=== PATIENT | female | born 1935 | race Asian ===

== ENCOUNTER 2023-02-21 16:56 | Outpatient (CLI) | payer MEDICARE, OTHER | END 2023-02-21 16:57 | disposition EMS.NT | LOC: EMS 16:56 | DX: R06.09 Other forms of dyspnea (principal); R53.1 Weakness; R53.83 Other fatigue ==

== ENCOUNTER 2023-02-24 22:18 | Outpatient (CLI) | payer MEDICARE, OTHER | END 2023-02-24 23:59 | disposition critical access hospital (66) | LOC: EMS 22:18 | DX: R06.02 Shortness of breath (principal); R41.0 Disorientation, unspecified; R53.83 Other fatigue | CPT/HCPCS: A0425; A0427 ==

== ENCOUNTER 2023-02-24 22:34 | Inpatient (IN) | payer MEDICARE, OTHER ==
[2023-02-24 23:11] LABS: BILIRUBIN,URINE NEGATIVE (NEGATIVE); GLUCOSE, URINE (UA) NEGATIVE (NEGATIVE); KETONES,URINE (UA) NEGATIVE (NEGATIVE); LEUKOCYTE ESTERASE, URINE NEGATIVE (NEGATIVE); NITRITE,URINE NEGATIVE (NEGATIVE); OCCULT BLOOD,URINE NEGATIVE (NEGATIVE); PROTEIN,URINE 30 mg/dL (NEGATIVE); UROBILINOGEN,URINE 0.2 (NORMAL) E.U./dL (NORMAL)
[2023-02-24 23:14] LABS: CLARITY,URINE HAZY (CLEAR)
[2023-02-24 23:20] LABS: VBG BASE EXCESS -7.6 mmol/L (-2 - +2); VBG HCO3 17.3 mmol/L (23-28); VBG OXYGEN SATURATION 62.1 % (60-80); VBG PCO2 33.5 mmHg (41-51); VBG PH 7.331 (7.31-7.41); VBG PO2 36.8 mmHg (25-47); VBG TOTAL CO2 18.3 mmol/L (24-29)
[2023-02-24 23:21] LABS: BASOPHILS % (AUTO) 0.2 %; EOSINOPHILS % (AUTO) 0.1 %; HCT - HEMATOCRIT 38.2 % (37.0-47.0); HGB - HEMOGLOBIN 12.1 g/dL (12.0-16.0); LYMPHOCYTES # (AUTO) 1.5 10^3/uL (1.5-3.5); LYMPHOCYTES % (AUTO) 8.9 %; MEAN CORPUSCULAR HEMOGLOBIN 30.2 pg (27.0-31.0); MEAN CORPUSCULAR HGB CONC 31.7 g/dL (32.0-36.0); MEAN CORPUSCULAR VOLUME 95.3 fL (81.0-99.0); MEAN PLATELET VOLUME 9.5 fL (7.9-10.8); MONOCYTES # (AUTO) 1.3 10^3/uL (0.0-1.0); NEUTROPHILS # (AUTO) 13.5 10^3/uL (1.5-6.6); NEUTROPHILS % (AUTO) 80.9 %; NRBC ABSOLUTE COUNT (AUTO) 0.06 x10^3/uL; NUCLEATED RED BLOOD CELLS AUTO 0.4 /100WBC; PLT - PLATELET COUNT 339 10^3/uL (130-450); RED BLOOD COUNT 4.01 10^6/uL (4.20-5.40); RED CELL DISTRIBUTION WIDTH 14.4 % (12.0-15.0); WHITE BLOOD COUNT 16.7 x10^3/uL (4.8-10.8)
[2023-02-24 23:27] LABS: WBC,URINE 0-3 /HPF (0-5)
[2023-02-24 23:28] LABS: BACTERIA,URINE Few /HPF (None Seen); CASTS, URINE 3-5 Hyaline Casts /LPF; RBC,URINE 0-5 /HPF (0-5); SQUAMOUS EPITHELIAL CELL,UR MANY Squamous (<= Few)
[2023-02-24 23:37] LABS: ALBUMIN 4.1 g/dL (3.2-5.5); ALBUMIN/GLOBULIN RATIO 1.1 (1.0-2.2); BILIRUBIN,TOTAL 1.8 mg/dL (0.2-1.0); CALCIUM 9.1 mg/dL (8.5-10.3); CREATININE 1.9 mg/dL (0.4-1.0); POTASSIUM 5.2 mmol/L (3.5-5.0); TOTAL PROTEIN 7.8 g/dL (6.7-8.2)
[2023-02-24] MEDS ORDERED: PIPERACILLIN/TAZOBACTAM 3.375 GM in SODIUM CHLORIDE 0.9% MINIBAG 100 ML IV STA (23:41)
[2023-02-24] MEDS ORDERED: ALBUTEROL NEB 2.5 MG/3 ML INH STA (23:41)
[2023-02-24] MEDS ORDERED: VANCOMYCIN INJ 1.25 GM in SODIUM CHLORIDE 0.9% 500 ML IV STA (23:41)
[2023-02-24] MEDS ORDERED: SODIUM CHLORIDE 0.9% 1,000 ML IV STA (23:45)
--- NOTE | 2023-02-24 23:46 | ED Physician Documentation ---
History of Present Illness - Stated complaint Stated Complaint: CONFUSION, WEAKNESS, FTT - Chief complaint Chief Complaint: Resp - History obtained from History obtained from: EMS - Additonal information Additional information: 87yF presents to the ED bibems with report daughter will come with more complete history, but that patient has not been eating or drinking X several days and has been increasingly weak. history limited by patient ams. PD PAST MEDICAL HISTORY - Past Medical History Past Medical History: Yes Cardiovascular: High cholesterol Respiratory: None Endocrine/Autoimmune: Type 2 diabetes, HyPOthyroidism GI: None : None HEENT: None Psych: None Musculoskeletal: None Derm: None - Past Surgical History Past Surgical History: Yes General: Colonoscopy /FARM MACHINE TENDER: section HEENT: Tonsil/Adenoidectomy - Present Medications Home Medications: Ambulatory Orders Medication Instructions Recorded Confirmed Aspirin [Aspir 81] 81 mg PO DAILY 02/17/15 03/04/15 Calcium Carb, Citrate/Vit D3 1 each PO DAILY 02/17/15 03/04/15 [Calcium + D3 ER Tablet] Levothyroxine [Synthroid] 225 mcg PO QDAC 02/17/15 03/04/15 Simvastatin 20 mg PO DAILY 02/17/15 03/04/15 Telmisartan [Micardis] 20 mg PO DAILY 02/17/15 03/04/15 metFORMIN [Glucophage] 500 mg PO BIDWM 02/17/15 03/04/15 - Allergies Allergies/Adverse Reactions: Allergies Allergy/AdvReac Type Severity Reaction Status Date / Time No Known Drug Allergies Allergy Verified 02/17/15 14:28 - Social History Does the pt smoke?: No Smoking Status: Never smoker PD ED PE NORMAL - Vitals Vital signs reviewed: Yes - General General: No acute distress, Well developed/nourished, Other (AOX2) - HEENT HEENT: Atraumatic, PERRL, EOMI, Pharynx benign, Other (dry MM) - Neck Neck: Supple, no meningeal sign - Cardiac Cardiac: Other (tachycardic rate, regular rhythm) - Respiratory Respiratory: Other (BL crackles) - Abdomen Abdomen: Non tender, Non distended - Derm Derm: Other (pale, with perioral cyanosis) - Extremities Extremities: No deformity Results - Vitals Vitals: Vital Signs - 24 hr 02/24/23 02/24/23 02/24/23 22:36 23:15 23:45 Temperature 36.3 C L Heart Rate 94 120 H 141 H Respiratory 36 H 26 H 22 Rate Blood Pressure 117/100 H 117/79 O2 Saturation 94 92 91 L If not protocol 2 1 : Oxygen Flow, liters/minute 02/25/23 02/25/23 02/25/23 00:07 00:28 01:02 Temperature Heart Rate 141 H 99 133 H Respiratory 28 H 30 H 30 H Rate Blood Pressure 127/91 H 93/59 L O2 Saturation 92 90 L If not protocol 4 2 4 : Oxygen Flow, liters/minute 02/25/23 01:16 Temperature Heart Rate 145 H Respiratory 31 H Rate Blood Pressure 100/69 O2 Saturation 90 L If not protocol 5 : Oxygen Flow, liters/minute Oxygen O2 Source Nasal cannula Oxygen Flow Rate 2 - EKG (time done) 2256 EKG releavant findings:: EKG personally interpreted by author of this note. Relevant findings are: Rate: Rate (enter#) (144) Rhythm: Sinus tachycardia Ischemia: Other (peaked t waves c/w hyperkalemia) Computer interpretation: Disagree with computer (not c/w SVT. this appears to be sinus tachycardia) - Labs Labs: Laboratory Tests 02/24/23 02/24/23 02/24/23 23:04 23:13 23:13 WBC 16.7 H RBC 4.01 L Hgb 12.1 Hct 38.2 MCV 95.3 MCH 30.2 MCHC 31.7 L RDW 14.4 Plt Count 339 MPV 9.5 Neut # (Auto) 13.5 H Lymph # (Auto) 1.5 [place] # (Auto) 1.3 H Eos # (Auto) 0.0 Baso # (Auto) 0.0 Absolute Nucleated RBC 0.06 Nucleated RBC % 0.4 VBG pH VBG pCO2 VBG pO2 VBG HCO3 VBG Total CO2 VBG O2 Saturation VBG Base Excess Sodium 131 L Potassium 5.2 H Chloride 98 L Carbon Dioxide 17 L Anion Gap 16.0 H BUN 89 H* Creatinine 1.9 H Estimated GFR (MDRD) 25 L Glucose 165 H POC Whole Bld Glucose Lactic Acid Calcium 9.1 Magnesium Total Bilirubin 1.8 H AST 360 H ALT 359 H Alkaline Phosphatase 284 H Troponin I High Sens B-Natriuretic Peptide 231 H Total Protein 7.8 Albumin 4.1 Globulin 3.7 Albumin/Globulin Ratio 1.1 Lipase 82 H Urine Color YELLOW Urine Clarity HAZY Urine pH 5.0 Ur Specific [place] >=1.030 H Urine Protein 30 H Urine Glucose (UA) NEGATIVE Urine Ketones NEGATIVE Urine Occult Blood NEGATIVE Urine Nitrite NEGATIVE Urine Bilirubin NEGATIVE Urine Urobilinogen 0.2 (NORMAL) Ur Leukocyte Esterase NEGATIVE Urine RBC 0-5 Urine WBC 0-3 Ur Squamous Epith Cells MANY Squamous H Urine Bacteria Few Urine Casts 3-5 Hyaline Casts Ur Microscopic Review INDICATED Urine Culture Comments NOT INDICATED 02/24/23 02/24/23 02/24/23 23:13 23:13 23:45 WBC RBC Hgb Hct MCV MCH MCHC RDW Plt Count MPV Neut # (Auto) Lymph # (Auto) [place] # (Auto) Eos # (Auto) Baso # (Auto) Absolute Nucleated RBC Nucleated RBC % VBG pH 7.331 VBG pCO2 33.5 L VBG pO2 36.8 VBG HCO3 17.3 L VBG Total CO2 18.3 L VBG O2 Saturation 62.1 VBG Base Excess -7.6 L Sodium Potassium Chloride Carbon Dioxide Anion Gap BUN Creatinine Estimated GFR (MDRD) Glucose POC Whole Bld Glucose Lactic Acid Calcium Magnesium 2.3 Total Bilirubin AST ALT Alkaline Phosphatase Troponin I High Sens 11.0 B-Natriuretic Peptide Total Protein Albumin Globulin Albumin/Globulin Ratio Lipase Urine Color Urine Clarity Urine pH Ur Specific [place] Urine Protein Urine Glucose (UA) Urine Ketones Urine Occult Blood Urine Nitrite Urine Bilirubin Urine Urobilinogen Ur Leukocyte Esterase Urine RBC Urine WBC Ur Squamous Epith Cells Urine Bacteria Urine Casts Ur Microscopic Review Urine Culture Comments 02/24/23 02/25/23 23:45 01:49 WBC RBC Hgb Hct MCV MCH MCHC RDW Plt Count MPV Neut # (Auto) Lymph # (Auto) [place] # (Auto) Eos # (Auto) Baso # (Auto) Absolute Nucleated RBC Nucleated RBC % VBG pH VBG pCO2 VBG pO2 VBG HCO3 VBG Total CO2 VBG O2 Saturation VBG Base Excess Sodium Potassium Chloride Carbon Dioxide Anion Gap BUN Creatinine Estimated GFR (MDRD) Glucose POC Whole Bld Glucose 142 H Lactic Acid 4.3 H* Calcium Magnesium Total Bilirubin AST ALT Alkaline Phosphatase Troponin I High Sens B-Natriuretic Peptide Total Protein Albumin Globulin Albumin/Globulin Ratio Lipase Urine Color Urine Clarity Urine pH Ur Specific [place] Urine Protein Urine Glucose (UA) Urine Ketones Urine Occult Blood Urine Nitrite Urine Bilirubin Urine Urobilinogen Ur Leukocyte Esterase Urine RBC Urine WBC Ur Squamous Epith Cells Urine Bacteria Urine Casts Ur Microscopic Review Urine Culture Comments PD Medical Decision Making - ED course ED course: 87yF bibems with CC failure to thrive and confusion. patient is SOA on arrival, tachycardic with ekg reading SVT but appears to be sinus tachycardia on my interpretation. no POLST on file. attempted to call both numbers on file but no answer. Patient meets sepsis criteria based on tachycardia, tachypnea, hypothermia, and leukocytosis. CXR concerning for pneumonia. vanc/zosyn ordered empirically and 1L IVF provided. holding off on 30cc/kg bolus given advanced age and concern for fluid overload. Hyperkalemia treated with dextrose/insulin, bicarb, calcium gluconate and xoponex breathing treatment. Plan to admit telehealth. d/w daughter who spoke with her older brother who is POA and requested she be made DNR/DNI. polst completed. patient DNR/DNI with selective measures only. Departure - Departure Disposition: 66 [facility] DC/Xfer Clinical Impression: Hyperkalemia, Pneumonia, Pleural effusion, Shortness of breath, Hypoxia Condition: Serious Forms: PCP List
--- NOTE | 2023-02-24 23:46 | XRAY Report ---
PROCEDURE: Chest 1 View X-Ray INDICATIONS: soa TECHNIQUE: One view of the chest was acquired. COMPARISON: None. FINDINGS: Surgical changes and devices: None. Lungs and pleura: There is a moderate left pleural effusion with left basilar atelectasis or consoli dation. Mediastinum: There is enlargement of the aortic arch contour. The left heart contours are obscured b ut there is suspected clinically. Bones and chest wall: No suspicious bony lesions. Overlying soft tissues appear unremarkable. IMPRESSION: 1. Enlargement of the aortic contour suspicious for an aortic aneurysm. Recommend further evaluation with a CT angiogram. 2. Moderate left pleural effusion with left basilar consolidation or atelectasis. Reviewed by: Tohmpson Holm MD on 02/25/2023 12:01 AM PDT Approved by: Thompson Holm MD on 02/25/2023 12:01 AM PDT Station ID: [id number]
[2023-02-25] MEDS ORDERED: ALBUTEROL NEB 2.5 MG/3 ML INH ONE (00:01)
[2023-02-25] MEDS ORDERED: VANCOMYCIN 1 GM VIAL ONE (00:04)
[2023-02-25] MEDS ORDERED: LEVALBUTEROL 1.25 MG/3 ML NEB INH ONE (00:11)
[2023-02-25] MEDS ORDERED: LEVALBUTEROL 1.25 MG/3 ML NEB INH STA (00:13)
[2023-02-25] MEDS ORDERED: INSULIN REGULAR HUMAN 300 UNIT/3 ML VIAL IVP STA (00:16)
[2023-02-25] MEDS ORDERED: DEXTROSE 50% ABBOJECT 25 GM/50 ML SYRINGE IVP STA (00:16)
[2023-02-25] MEDS ORDERED: CALCIUM GLUCONATE IN NS 0.9% 2,000 MG/100 ML BAG IV STA (00:22)
[2023-02-25] MEDS ORDERED: SODIUM BICARBONATE ABBOJECT 50 MEQ/50 ML SYRINGE IVP STA ×2 (00:22→18:49)
--- NOTE | 2023-02-25 01:34 | HISTORY & PHYSICAL EXAMINATION ---
Chief Complaint - Chief Complaint Chief Complaint: tired History of Present Illness - Admitted From Admitted From:: ED - History Obtained From Records Reviewed: EMR History obtained from: Patient and Daughter Exam Limitations: Tele Medicine and hearing impairment - History of Present Illness HPI Comment/Other: 87F c hearing impairment who presents to the ED reporting not feeling well. Patient is a poor historian. She simply states she is not feeling well. She reports no fever. positive SOB. fatigue. cough. no chest pain. Plus nausea. no vomiting. no diarrhea. At bedside, daughter reports patient got a respiratory cold 3 wks ago and lasted 10 days. After 10days, sxs resolved. 5 days ago, patient started to have decreased appetite. Daughter reported patient decreased ability to walk. [place] very fatigued. Daughter called medics twice over the past week and patient had stable vitals so patient was not transferred to the ED. Today patient seems very much ill so daughter decided to bring patient into the ED. Daughter reports no rash. POS chronic BL swelling. negative medication change. patient has never smoke. she has an albuterol inhaler for asthma. 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 HEENT: reports: Tonsil/Adenoidectomy Meds/Allgy - Home Medications Home Medications: Ambulatory Orders Medication Instructions Recorded Confirmed Aspirin [Aspir 81] 81 mg PO DAILY 02/17/15 03/04/15 Calcium Carb, Citrate/Vit D3 1 each PO DAILY 02/17/15 03/04/15 [Calcium + D3 ER Tablet] Levothyroxine [Synthroid] 225 mcg PO QDAC 02/17/15 03/04/15 Simvastatin 20 mg PO DAILY 02/17/15 03/04/15 Telmisartan [Micardis] 20 mg PO DAILY 02/17/15 03/04/15 metFORMIN [Glucophage] 500 mg PO BIDWM 02/17/15 03/04/15 - Allergies Allergies/Adverse Reactions: Allergies Allergy/AdvReac Type Severity Reaction Status Date / Time No Known Drug Allergies Allergy Verified 02/17/15 14:28 Review of Systems - Other Findings Other Findings: negative unless mentioned differently in HPI Exam - Vital Signs Reviewed Vital Signs: Yes Vital Signs: Vital Signs x48h Temp Pulse Resp BP Pulse Ox O2 Flow Rate 02/25/23 01:16 145 H 31 H 100/69 90 L 5 02/25/23 01:02 133 H 30 H 93/59 L 90 L 4 02/25/23 00:28 99 30 H 127/91 H 92 2 02/25/23 00:07 141 H 28 H 4 02/24/23 23:45 141 H 22 91 L 1 02/24/23 23:15 120 H 26 H 117/79 92 2 02/24/23 22:36 36.3 C L 94 36 H 117/100 H 94 - Physical Exam General Appearance: positive: Moderate distress, Lethargic Eyes Bilateral: positive: Normal inspection ENT: positive: ENT inspection nml Neck: positive: Nml inspection Respiratory: positive: Rales, Other (decreased breath sounds) Cardiovascular: positive: Tachycardia Abdomen: positive: Non-tender, No distention Skin: positive: No rash Extremities: positive: Nml appearance, Pedal edema (1+ BLE) Neurologic/Psychiatric: positive: CN's nml (2-12) (alert and following commands), Disoriented to person, Disoriented to place Sepsis Event Note (H) - Evaluation Current Stage of Sepsis: Sepsis Possible source of Sepsis: positive: Pulmonary Conclusion/Plan - Problem List (1) Sepsis Conclusion/Plan: likely respiratory. tachycardia + tachypnea + leukocytosis + PNA = sepsis. empiric abx. followup cultures. concerned for possible heart failure. judicious iv fluid resuscitation. (2) Pneumonia Conclusion/Plan: noted left sided effusion/ consolidation. possible URI 3 wks ago got worse. empiric abx. followup cultures. judicious iv fluid support as there is concern for heart failure. followup CTA chest r/o PE. followup am labs and procalcitonin for infectious support. (3) Acute hypoxemic respiratory failure Conclusion/Plan: noted left sided pleural effusion/ consolidation 2/2 PNA. possible heart failure. will start bipap to support hypoxia and heart failure. prn duoneb (4) Hypothyroidism Conclusion/Plan: managed. continue levothyroxine. checking tsh and fT4 (5) Hyperlipidemia Conclusion/Plan: managed. continue home statin therapy (6) DM2 (diabetes mellitus, type 2) Conclusion/Plan: hold metformin. ssi. accucheck (7) Acute renal failure (ARF) Conclusion/Plan: likely pre renal mechanism of injury in setting of sepsis and PNA while taking ARB. hold telmisartan. prn hydralazine. judicious iv fluid support. will try to avoid nephrotoxin however will need to r/o PE and eval aneurysm. monitor renal function with repeat BMP (8) Hypertension Conclusion/Plan: managed. hold home telmisartan 2/2 ARF. prn hydralazine. monitor BP c repeat vital checks. - Lab Results Fish Bones: 02/24/23 23:13 02/24/23 23:13 Core Measures - Anticipated LOS I expect patient to be DC'd or transferred within 96 hours.: No - Issues Hospital Issues and Management Plan: The patient consented to receive this telemedicine service, which I performed via live two-way audiovisual equipment. The patient is at ([facility]) and I am physically in [facility]. A nurse assisted me in the visit. - DVT/VTE - Prophylaxis VTE/DVT Device ordered at admit?: Yes Telemedicine Consult Details - Provider Location & Consult Time Telemedicine consultation conducted via videoconferencing?: Yes List names and roles of persons who participated in consult:: RN, Daughter, ED staff, and patient Telemedicine provider location:: [facility] Time Telemedicine consult began:: 01:22 Time Telemedicine consult completed:: 02:37
[2023-02-25] MEDS ORDERED: cefTRIAXone 2 GM in SODIUM CHLORIDE 0.9% MINIBAG 100 ML IV SCH ×2 (01:56→19:00)
[2023-02-25] MEDS ORDERED: IPRATROPIUM/ALBUTEROL 3 ML NEB INH PRN (01:57)
[2023-02-25] MEDS ORDERED: DOXYCYCLINE INJ 100 MG in SODIUM CHLORIDE 0.9% MINIBAG 100 ML IV SCH (02:00)
[2023-02-25] MEDS ORDERED: ONDANSETRON 4 MG/2 ML VIAL IVP PRN (02:03)
[2023-02-25] MEDS ORDERED: ACETAMINOPHEN 325 MG TABLET PO PRN (02:03)
[2023-02-25] MEDS ORDERED: SODIUM CHLORIDE FLUSH 0.9% 10 ML SYRINGE IVP PRN (02:03)
[2023-02-25] MEDS ORDERED: PROCHLORPERAZINE 10 MG/2 ML VIAL IVP PRN (02:03)
[2023-02-25] MEDS ORDERED: hydrALAZINE INJ 20 MG/ML VIAL IVP PRN (02:13)
[2023-02-25] MEDS ORDERED: SODIUM CHLORIDE 0.9% 1,000 ML IV SCH ×3 (03:00→18:06)
[2023-02-25 03:29] LABS: ABG BASE EXCESS -12.6 mmol/L (-2.0-3.0); ABG HCO3 13.6 mmol/L (22.0-26.0); ABG OXYGEN SATURATION 98 % (94-98); ABG PCO2 32 mmHg (34-45); ABG PH 7.24 (7.35-7.45); ABG PO2 135 mmHg (80-100); ABG TCO2 14.6 MMOL/L (21.0-29.0); ALLEN TEST POSITIVE
[2023-02-25 03:30] LABS: ABG MODE OF VENTILATION SYNCHRONOUS/TIMES
[2023-02-25] MEDS ORDERED: iohexoL-300 100 ML VIAL IVP ONE (03:38)
[2023-02-25 05:33] LABS: CALCIUM, IONIZED 1.07 mmol/L (1.15-1.33); VBG PH 7.207 (7.31-7.41)
[2023-02-25 05:40] LABS: PT - PROTHROMBIN TIME 21.7 secs (9.9-12.6)
[2023-02-25 06:26] LABS: ALBUMIN 3.5 g/dL (3.2-5.5); BILIRUBIN,DIRECT 0.88 mg/dL (0.03-0.18); MAGNESIUM 1.7 mg/dL (1.7-2.3); PHOSPHORUS 5.4 mg/dL (2.5-5.0)
[2023-02-25 06:30] LABS: BILIRUBIN,TOTAL 1.7 mg/dL (0.2-1.0); CALCIUM 8.8 mg/dL (8.5-10.3); CREATININE 1.7 mg/dL (0.6-1.3); POTASSIUM 4.6 mmol/L (3.5-4.5); TOTAL PROTEIN 6.8 g/dL (6.4-8.9)
[2023-02-25 06:42] LABS: THYROID STIMULATING HORMONE 24.83 uIU/mL (0.34-5.60)
[2023-02-25] MEDS ORDERED: LEVOTHYROXINE 25 MCG TABLET ONE (06:54)
[2023-02-25] MEDS ORDERED: LEVOTHYROXINE 100 MCG TABLET ONE (06:54)
[2023-02-25] MEDS ORDERED: LEVOTHYROXINE 112 MCG TABLET PO SCH (07:00)
[2023-02-25] MEDS ORDERED: CALCIUM GLUC 1,000MG/50ML-NACL 1,000 MG/50 ML BAG IV ONE (07:33)
[2023-02-25] MEDS ORDERED: MAGNESIUM SULFATE 2 GRAM 2 GM/50 ML BAG IV ONE (07:33)
--- NOTE | 2023-02-25 07:43 | CT Report ---
PROCEDURE: ANGIO CHEST W/WO INDICATIONS: SOA CONTRAST: 100 ML OMNI 300 TECHNIQUE: After the administration of intravenous contrast, 2 mm axial images were acquired from the pulmonary apices to the posterior costophrenic angles during the arterial phase. In addition, 1 mm lung kernel and 5 mm soft tissue kernel reconstructions were performed. 3-dimensional coronal oblique maximum int ensity projection (MIP) reformats, 8 mm axial MIP, and 5 mm coronal and sagittal MPR reformats were t hen performed through the thorax. For radiation dose reduction, the following was used: automated exp osure control, adjustment of mA and/or kV according to patient size. COMPARISON: None FINDINGS: Image quality: Excellent. Large vessels: No filling defects within the opacified pulmonary arteries, accounting for motion and contrast timing. No evidence of acute aortic syndrome or aortic aneurysm. Lungs and pleura: Mild pulmonary edema. Bilateral pleural effusions, mild to moderate on the right an d moderate on the left. Bibasilar compressive atelectasis. Mediastinum: Very large pericardial effusion measuring 4.6 cm in transverse diameter. There is beam h ardening artifact from contrast within the right ventricle. There is a hyperdense appearance of the p ericardial fluid, which may be artifact, but hemopericardium is not excluded. There is reflux of cont rast into the hepatic veins suggesting right heart failure. No large vessel abnormality. No mediastin al adenopathy by size criteria. Chest wall and lower neck: Thyroid is not well seen. No axillary or supraclavicular adenopathy by siz e. Bones: No aggressive osseous abnormality. Upper Abdomen: Unremarkable. IMPRESSION: 1. No acute pulmonary emboli. 2. Very large pericardial effusion. Cannot exclude hemopericardium. Recommend cardiology consultation for evaluation of the pericardial fluid. 3. Evidence of right and left heart failure. Findings include pulmonary edema, bilateral pleural flui d, and bibasilar atelectasis. Findings are concordant with preliminary interpretation provided by [facility]. Reviewed by: Jose Bonner MD on 02/25/2023 7:42 AM PDT Approved by: Jose Bonner MD on 02/25/2023 7:42 AM PDT Station ID: [id number]
--- NOTE | 2023-02-25 07:48 | CT Report ---
PROCEDURE: ABDOMEN/PELVIS W INDICATIONS: eval for causes of presenting illness CONTRAST: 100 ML OMNI 300 TECHNIQUE: After the administration of oral and intravenous contrast, 5 mm thick sections acquired from the diap hragms to the symphysis. 5 mm thick coronal and sagittal reformats were acquired. For radiation dos e reduction, the following was used: automated exposure control, adjustment of mA and/or kV accordin g to patient size. COMPARISON: CTA chest from the same date FINDINGS: Image quality: Excellent. Lung bases and heart: Very large pericardial effusion. High density suggests possible hemopericardium . Minimal pulmonary edema. Bilateral pleural effusions, mild to moderate on the right and moderate on the left, with compressive bibasilar atelectasis. Liver: No solid mass. Gallbladder and biliary tree: There is gallbladder wall thickening and stranding around the gallbladd er. Question gallstones. Spleen: No splenomegaly. Pancreas: No pancreatic ductal dilation. Adrenals: No adrenal nodule. Kidneys and ureters: No hydronephrosis. No renal cystic lesion which requires follow up. No solid mas s. Bowel and peritoneum: No bowel distension. No pathologic free fluid. Lymph nodes: No central or retroperitoneal adenopathy. Vessels: No infrarenal aortic aneurysm. PELVIS Reproductive organs: Uterus is surgically absent. Bladder: No abnormal wall thickening, accounting for underdistension. Pelvic lymph nodes: No pelvic adenopathy by size criteria. Bones: No aggressive osseous abnormality. Other: No significant ventral or inguinal hernia. IMPRESSION: 1. Very large pericardial effusion with high density suggesting possible hemopericardium. 2. Bilateral pleural effusions, bibasilar atelectasis. 3. Abnormal appearance of the gallbladder with wall thickening and stranding in the adjacent fat and question of gallstones. Comment: As per suggestion in the CTA chest report, cardiology consult recommended. If suspect acute cholecystitis, consider right upper quadrant ultrasound. The gallbladder findings may be secondary to right heart dysfunction/liver dysfunction, or potentially may represent acute cholecystitis. Findings are concordant with preliminary interpretation provided by [facility]. Reviewed by: Jose Bonner MD on 02/25/2023 7:47 AM PDT Approved by: Jose Bonner MD on 02/25/2023 7:47 AM PDT Station ID: [id number]
[2023-02-25] MEDS ORDERED: AZITHROMYCIN 250 MG TABLET PO STA (08:19)
[2023-02-25] MEDS ORDERED: LEVALBUTEROL 1.25 MG/3 ML NEB INH PRN (08:21)
[2023-02-25] MEDS: INSULIN LISPRO 300 UNIT/3 ML PEN SUBQ SCH ×3 (08:42→16:53)
[2023-02-25 08:50] LABS: CALCIUM 9.7 mg/dL (8.5-10.3); CREATININE 1.9 mg/dL (0.6-1.3); POTASSIUM 4.5 mmol/L (3.5-4.5)
[2023-02-25] MEDS: SODIUM CHLORIDE FLUSH 0.9% 10 ML SYRINGE IVP SCH ×2 (08:59→16:54)
[2023-02-25] MEDS ORDERED: ASPIRIN EC 81 MG TABLET PO SCH (09:00)
[2023-02-25] MEDS ORDERED: ATORVASTATIN 10 MG TABLET PO SCH (09:00)
[2023-02-25] MEDS ORDERED: HEPARIN 5,000 UNIT/ML VIAL SUBQ SCH (09:00)
[2023-02-25] MEDS ORDERED: ethyl alcohoL 62% SWAB AMPULE NAS SCH (09:00)
[2023-02-25 09:32] LABS: ESTIMATED AVERAGE GLUCOSE 137 mg/dL (70-100); HEMOGLOBIN A1c% 6.4 % (4.27-6.07)
[2023-02-25 09:34] LABS: B. PARAPERTUSSIS- RESP PCR PAN NOT DETECTED; B. PERTUSSIS- RESP PCR PANEL NOT DETECTED; C. PNEUMONIAE- RESP PCR PANEL NOT DETECTED; CORONAVIRUS 229E-RESP PCR NOT DETECTED; CORONAVIRUS HKU1-RESP PCR NOT DETECTED; CORONAVIRUS NL63-RESP PCR NOT DETECTED; CORONAVIRUS OC43-RESP PCR NOT DETECTED; HUMAN METAPNEUMOVIRUS NOT DETECTED; INFLUENZA A- RESP PCR PANEL NOT DETECTED; INFLUENZA B - RESP PCR PANEL NOT DETECTED; M. PNEUMONIAE- RESP PCR PANEL NOT DETECTED; PARAINFLUENZA VIRUS 1 NOT DETECTED; PARAINFLUENZA VIRUS 2 NOT DETECTED; PARAINFLUENZA VIRUS 3 NOT DETECTED; PARAINFLUENZA VIRUS 4 NOT DETECTED; RHINOVIRUS/ENTEROVIRUS NOT DETECTED; RSV- RESP PCR PANEL NOT DETECTED; SARS-CoV-2 -RESP PCR PANEL NOT DETECTED
--- NOTE | 2023-02-25 11:00 | ANESTHESIA PROCEDURE NOTE ---
Anesth Central Line Template - Central Line Central Line Preparation: Unable to obtain consent, Time out completed, Ultra sound used, Sterile prep and drape Central line location: Right IJ Central line type: Triple lumen Central line catheter tip site resides: Superior vena cava (SVC) Central line aftercare: Chlorhexidine disc placed, Secured, Placement confirmed, No pneumothorax, No complications, Bundle checklist complete, Pt tolerated well, Other Other Info/Details: secured at 16
--- NOTE | 2023-02-25 11:02 | PHARMACY PROGRESS NOTE ---
- Best Possible Medication History Admit Date and Time: 02/25/23 0203 Processed by: Pharmacy Medication History completed: Yes Patient Interview: Pt unable to participate Secondary Source(s): Pharmacy records, Insurance records As the person ultimately responsible for medication therapy, providers are able to order a medication from an existing home medication list in [facility] via the "Reconcile Routine" prior to Confirmation of that medication by operations support analyst. Such practice is discouraged except when the physician, in their clinical judgment, deems that a medical need exists for a medication without regard to previous use.
--- NOTE | 2023-02-25 11:23 | XRAY Report ---
PROCEDURE: Chest for Line Placement INDICATIONS: new R IJ CVL TECHNIQUE: One view of the chest was acquired. COMPARISON: None. FINDINGS: Surgical changes and devices: Right IJ central venous line tip in the mid SVC Heart size is enlarged. Obscuration left hemidiaphragm present. Moderate vascular congestion. Right l fe pleural space clear. No pneumothorax. IMPRESSION: Right IJ central venous line in good position. No pneumothorax. Cardiomegaly, moderate vascular congestion and left pleural effusion with atelectasis and or infiltra te Reviewed by: Alejandro Lucio MD on 02/25/2023 10:22 AM BR[facility] Approved by: Alejandro Lucio MD on 02/25/2023 10:22 AM BRENNAN Station ID: [id number]
[2023-02-25 11:29] LABS: BASOPHILS % (AUTO) 0.2 %; EOSINOPHILS % (AUTO) 0.1 %; HGB - HEMOGLOBIN 11.7 g/dL (12.0-16.0); LYMPHOCYTES % (AUTO) 5.3 %; MEAN CORPUSCULAR HEMOGLOBIN 30.4 pg (27.0-31.0); MEAN CORPUSCULAR HGB CONC 31.6 g/dL (32.0-36.0); MEAN CORPUSCULAR VOLUME 96.1 fL (81.0-99.0); MEAN PLATELET VOLUME 9.2 fL (7.9-10.8); MONOCYTES # (AUTO) 1.5 10^3/uL (0.0-1.0); MONOCYTES % (AUTO) 7.7 %; NEUTROPHILS # (AUTO) 16.2 10^3/uL (1.5-6.6); NEUTROPHILS % (AUTO) 84.7 %; NRBC ABSOLUTE COUNT (AUTO) 0.04 x10^3/uL; NUCLEATED RED BLOOD CELLS AUTO 0.2 /100WBC; PLT - PLATELET COUNT 246 10^3/uL (130-450); RED BLOOD COUNT 3.85 10^6/uL (4.20-5.40); RED CELL DISTRIBUTION WIDTH 14.6 % (12.0-15.0); WHITE BLOOD COUNT 19.1 x10^3/uL (4.8-10.8)
[2023-02-25 11:46] LABS: MAGNESIUM 1.8 mg/dL (1.7-2.3); PHOSPHORUS 6.2 mg/dL (2.5-5.0); POTASSIUM 4.9 mmol/L (3.5-4.5)
[2023-02-25 11:55] LABS: CALCIUM, IONIZED 1.15 mmol/L (1.15-1.33); VBG PH 7.228 (7.31-7.41)
[2023-02-25] MEDS ORDERED: SODIUM CHLORIDE 0.9% 500 ML IV ONE (12:27)
[2023-02-25] MEDS ORDERED: LEVALBUTEROL 1.25 MG/3 ML NEB INH SCH (13:00)
[2023-02-25] MEDS ORDERED: SODIUM BICARBONATE ABBOJECT 50 MEQ/50 ML SYRINGE IVP ONE ×2 (13:13→18:49)
--- NOTE | 2023-02-25 13:22 | PROVIDER PROGRESS NOTE ---
Hospitalist Cross-cover Note - Cross-Cover Note Cross-Cover Note: As a Board-certified Line Installation Supervisor, credentialed to do perform and interpret Echos, I did a limited STAT bedside Echo on this patient. 02/25/23 Indication: SOB, Hypotension, Pericardial effusion large by CT, Electrical alternans seen on EKG. Image quality: Fair (patient sitting bolt upright, and has large breasts) Findings: Very large pericardial effusion. The heart is rocking in the pericardial effusion. Small LV chamber size with LVH, probably normal LVEF. Cannot estimate diastolic function due to rocking of the heart within the pericardial effusion which makes for pulsed Doppler exam impossible Probably moderately dilated RV, cannot visualize RV function Atria are poorly seen, they may be compressed by the pericardial effusion All valves are poorly seen. Doppler of the valves was not done. Impression: Probable cardiac tamponade
--- NOTE | 2023-02-25 13:24 | PROVIDER PROGRESS NOTE ---
Hospitalist Cross-cover Note - Cross-Cover Note Cross-Cover Note: Patient was admitted at 0200 today into the ICU, by the night Telemedicine doctor, with impression of have Sepsis from a pneumonia, REJI, hypoxic respiratory failure and abnormal chest CT. Also present are abnormal GB on CT abdomen and a history of DM, hypothyroidism, probably mild dementia and KLUTI KAAH. She first received IV fluids then IV Lasix in the ER. She was started on IV ceftriaxone and Doxycycline for the poss pneumonia, by the night Telemedicine doctor. She is on suppl O2, requiring BiPAP in the ICU. Her last ABG shows metabolic acidosis Today I spoke to her DPOA, son, Demetrio Quinonez , who gave more history that the patient lives with his sister Nikki, she has been ill and worsening for 2 weeks, developed a URI, becoming overall weak, losing her appetite and having fatigue. I reviewed all her labs, all her imaging and vital signs and examined the pt. CT chest showed that the patient has a large pericardial effusion, with a suggestion that it is hemorrhagic. She has bilateral pleural effusions with lung atelectasis versus pneumonia. Her CT abdomen shows stranding of the gallbladder with stones suggesting probable cholecystitis. Her labs show REJI with BUN/creatinine of 89/1.9>> 79/1.7 after iv fluids. Sepsis with lactic acid of 4.3>> 5.2, ABG of 7.24/32/135, and bicarb 14. Elevated LFTs with AST 360, ALT 359, alk phos 284, bilirubin 1.8. Her blood culture is negative thus far. TSH 24.83, free T4 0.78. Her nares swab shows (+) MRSA. INR 2.9. The patient is in the ICU. Blood pressure is soft running 90-120 systolic. Heart rate is 90-130 in sinus tachycardia with IV fluids. She is tachypneic, respiratory rate 30. She is saturating at 99% on BIPAP with FIO2 45%. She is obese, hard of hearing, has diminished breath sounds, distant heart sounds, abdomen is obese, but nontender, she has trace-1+ peripheral edema. Her admission EKG showed sinus tachycardia with electrical alternans and low voltage, suggesting cardiac tamponade I performed a STAT bedside Echo (see separate report). This shows a large pericardial effusion, and cardiac tamponade is present, with the heart rocking within the pericardial fluid, and there is probable collapse of the LA & RA, and a small LV with LVH. She has a moderately dilated RV which is not collapsing. Impression: Cardiac tamponade Sepsis Metabolic acidosis Cholecystitis Transaminitis and elevated INR Possible pneumonia REJI DM, prev on Metformin Hypothyroidism, undertreated (+) MRSA on nares swab (-) COVID test Plan: Stop Doxycycline and I added Zithromax to the Ceftriaxone to treat CAP I then stopped her Ceftriaxone and ordered Zosyn to cover acute cholecystitis I ordered IV bolus of fluids then saline increased from TKO to 125 cc/hour. Later when urine output dropped to 5 cc/hr, a 1000 cc fluid bolus and drip rate increased to 150 cc/hr I ordered a Miller cath to be inserted in this critically ill pt Ordered a CVP line to be placed by Anesthesia, reviewed the CXR placement and OKd its use Started Nazol for her positive MRSA nasal swab Ordered another amp of bicarb and a bicarb drip for her metabolic acidosis. F/U labs ordered. Ordered a diabetic diet, confirming she is getting Accu-checks and SSI Cancel the order for PT I updated the son, who is her DPOA and confirmed that he would want her transferred for higher level of care for a possible pericardial window and he does. I spoke to the marketing program coordinator at [facility], then to the [facility] Clerk Dr. Pulido who agreed to accept the patient if OK with Cardiology, and then I spoke to the on-call [employer] at [facility], Dr Suazo who agreed she needs transfer and needs the pericardial fluid drained. I then updated the daughter, who was at the patient's bedside this afternoon. An ABG was checked before she was to be transferred. ABG may have been venous, it showed pH 7.19/pCO2 39/ pO2 54/biacrb 14. 2 A of bicarb ordered to be given stat, on top of her bicarb drip that is already going. I repeat ABG 5 minutes later. She will likely need intubation to be placed on the vent for safe transfer. ER doctor to be contacted for intubation. CRITICAL CARE TIME SPENT: 140 min (Evaluating the patient, ordering med changes and labs, reviewing labs, reviewing imaging and EKG, reevaluating the patient, speaking to the son, speaking to facility transfer center, speaking to the accepting doctors, updating the daughter, arranging for transfer, COBRA paperwork, reviewing ABG, updating ER provider re: probable intubation).
[2023-02-25] MEDS ORDERED: SODIUM BICARBONATE 150 MEQ in DEXTROSE 5% 1,000 ML IV SCH (14:00)
[2023-02-25] MEDS ORDERED: PIPERACILLIN/TAZOBACTAM 3.375 GM in SODIUM CHLORIDE 0.9% MINIBAG 100 ML IV ONE (14:00)
[2023-02-25 14:01] LABS: LACTIC ACID, VENOUS 5.5 mmol/L (0.5-2.2)
[2023-02-25 17:42] LABS: LACTIC ACID, VENOUS 6.7 mmol/L (0.5-2.2)
[2023-02-25] MEDS ORDERED: PIPERACILLIN/TAZOBACTAM 3.375 GM in SODIUM CHLORIDE 0.9% MINIBAG 100 ML IV SCH (18:00)
[2023-02-25] MEDS ORDERED: SODIUM CHLORIDE 0.9% 1,000 ML IV ONE (18:00)
[2023-02-25] MEDS ORDERED: SODIUM CHLORIDE 0.9% 1,000 ML ONE (18:31)
[2023-02-25 18:43] LABS: ABG PCO2 39 mmHg (34-45)
[2023-02-25 18:44] LABS: ABG HCO3 14.4 mmol/L (22.0-26.0); ABG PO2 54 mmHg (80-100); ABG TCO2 15.6 MMOL/L (21.0-29.0); ALLEN TEST POSITIVE
[2023-02-25 18:46] LABS: ABG OXYGEN SATURATION 81 % (94-98); ABG PH 7.19 (7.35-7.45)
[2023-02-25] MEDS ORDERED: SODIUM BICARBONATE 8.4% 50 MEQ/50 ML VIAL ONE (19:05)
[2023-02-25 19:54] LABS: ABG BASE EXCESS -8.9 mmol/L (-2.0-3.0); ABG HCO3 19.4 mmol/L (22.0-26.0); ABG OXYGEN SATURATION 89 % (94-98); ABG PCO2 53 mmHg (34-45); ABG PO2 71 mmHg (80-100); ALLEN TEST POSITIVE
[2023-02-25 19:58] LABS: ABG PH 7.19 (7.35-7.45)
[2023-02-25 21:01] VITALS: BP 94/61; O2SAT 88
[2023-02-26] MEDS ORDERED: LEVOTHYROXINE 125 MCG TABLET PO SCH (07:00)
[2023-02-26] MEDS ORDERED: AZITHROMYCIN 250 MG TABLET PO SCH (09:00)
== END 2023-02-25 20:25 | disposition short-term general hospital (02) | DRG 871 ==
LOC: EDUNIT# → ED 22:34 → ICU 02-25 02:03
PROVIDERS: ADMIT Internal Medicine; ATTEND Internal Medicine
PROC: 02HV33Z Insertion of Infusion Device into Superior Vena Cava, Percutaneous Approach (ICD-10-PCS; principal; 2023-02-25)
DX: A41.9 Sepsis, unspecified organism (principal); J18.9 Pneumonia, unspecified organism; J96.01 Acute respiratory failure with hypoxia; J90 Pleural effusion, not elsewhere classified; N17.9 Acute kidney failure, unspecified; R62.7 Adult failure to thrive; E78.00 Pure hypercholesterolemia, unspecified; J45.909 Unspecified asthma, uncomplicated; E11.9 Type 2 diabetes mellitus without complications; I10 Essential (primary) hypertension; E87.5 Hyperkalemia; E03.9 Hypothyroidism, unspecified; Z79.82 Long term (current) use of aspirin; Z79.84 Long term (current) use of oral hypoglycemic drugs; Z79.890 Hormone replacement therapy; Z79.899 Other long term (current) drug therapy
CPT/HCPCS: 36415; 36600; 71045; 71275; 74177; 80048; 80053; 80076; 81001; 82330; 82803; 83036; 83605; 83690; 83735; 83880; 84100; 84132; 84145; 84439; 84443; 84484; 85025; 85610; 87040; 87086; 87150; 87633; 93005; 94640; 94660; A9270; J1815; J3370; Q9967; 81003; 87070; 87205; 96365; 96366; 96368; 96375; 99285